=== PATIENT | male | born 2000 | race Asian ===

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

== ENCOUNTER → 2018-11-07 06:51 | Day surgery (SDC) | payer OTHER, MEDICAID ==
[~2018-11-07 06:51] MED LIST changes: +Atracurium* 10 MG/ML 10 ML VIAL ONE; -Buffered Lidocaine 0.9% SYRIN* 5 ML/SYR SYRINGE INTRADERM ONE; -Famotidine IV* 10 MG/ML 2 ML (20 mg) IV ONE; +KETAMINE HCL* 50 MG/ML 10 ML VIAL ONE; +Lactated Ringers 1000 ML Bag* 1,000 ML IV SCH; +Midazolam concentrated* 5 MG/ML 1 ml VIAL ONE; +Midazolam* 1 MG/ML 2 ML VIAL (2 MG) ONE; -PROCHLORPERAZINE INJ 5 MG/ML 2 ML VIAL IV PRN; +Propofol* 10 MG/ML 20 ML BTL ONE; +fentaNYL* 50 MCG/ML 2 ML VIAL (100 MCG VIAL) ONE
[2018-11-07 10:18] LABS: ABS Eosinophils 0.1 10^3/ul (0-0.6); ABS Lymphocytes 2.2 10^3/ul (1.0-4.8); ABS Monocytes 0.5 10^3/ul (0-0.8); ABS Neutrophils 5.7 10^3/ul (1.5-7.7); Eosinophil % 1.3 %; Hematocrit 40 % (42-52); Hemoglobin 13.8 g/dL (14.0-18.0); Lymphocyte % 25.3 %; Mean Corpuscular HGB Conc 34 g/dL (31-36); Mean Corpuscular Hemoglobin 30 pg (27-31); Mean Corpuscular Volume 86 fL (80-94); Mean Platelet Volume 8.9 fL (7.4-10.4); Nucleated Red Blood Cells % 0.1; Platelet Count 244 10^3/uL (150-450); Red Blood Count 4.64 10^6 /uL (4.18-5.48); Red Cell Distribution Width 13 % (10-15); White Blood Count 8.5 10^3/uL (3.5-10.8)
[2018-11-07 10:33] LABS: Albumin 4.8 g/dL (3.2-5.2); Albumin/Globulin Ratio 2.2 (1-3); Calcium 9.7 mg/dL (8.6-10.3); EGFR African American 175.8 (>60); EGFR Non-African American 145.3 (>60); Globulin 2.2 g/dL (2-4); HDL Cholesterol 35.1 mg/dL; Potassium 4.1 mmol/L (3.5-5.0); Total Bilirubin 0.2 mg/dL (0.2-1.0)
[2018-11-07 11:05] VITALS: BP 101/79
== END | disposition home or self-care (01) ==
LOC: OR 06:51
PROVIDERS: ATTEND Otolaryngology
DX: S09.93XA Unspecified injury of face, initial encounter (principal); S02.5XXA Fracture of tooth (traumatic), initial encounter for closed fracture; W22.8XXA Striking against or struck by other objects, initial encounter; Y92.9 Unspecified place or not applicable; J32.0 Chronic maxillary sinusitis; F84.0 Autistic disorder; F42.9 Obsessive-compulsive disorder, unspecified; G40.89 Other seizures; L65.9 Nonscarring hair loss, unspecified; J30.9 Allergic rhinitis, unspecified; F91.9 Conduct disorder, unspecified; Z79.899 Other long term (current) drug therapy
CPT/HCPCS: 36415; 70486; 80053; 80061; 83036; 85025; J2250; J2704; J3010

== ENCOUNTER 2019-02-27 16:28 | Emergency (ER) | payer OTHER, MEDICAID ==
--- OUTSIDE RECORDS SUMMARY | 2019-02-27 16:52 | XMS REPORT | Continuity of Care Document ---
:2000 External Reference #:[id number] Author Name Lori Gutierrez DO Address [address] [place] [id number] Care Team Providers Name Role Phone Lori Gutierrez - Family Medicine Care Team Information Risk Management Intern [phone] Problems Active Problems Provider Date Autistic disorder Lori Gutierrez DO Onset: 11/01/2018 Seizure Onset: Abnormal weight loss Lori Gutierrez DO Onset: 11/01/2018 Social History Type Date Description Comments Sex Unknown Allergies, Adverse Reactions, Alerts Active Allergies Reaction Severity Comments Date Trees 10/29/2018 Caseins 11/17/2018 Soy Proteins 10/29/2018 Dairy 11/17/2018 Biaxin 10/29/2018 Macrolides And Ketolides 10/29/2018 Medications Active Medications SIG Qnty Indications Ordering Date Provider Chlorhexidine [place] or swab [facility] 02/13/2019 Gluconate 10 ml daily Karnow, DO 0.12% Solution Acetaminophen 1 tab by mouth [facility] 02/13/2019 every 4 hours Karnow, DO 325mg/10.15ML as needed for Solution pain and fever Ibuprofen 200 2 tab by mouth [facility] 02/13/2019 200mg every 8 hours Karnow, DO Tablets as needed Betamethasone Apply once a Lori 02/13/2019 Dipropionate day on affected Karnow, DO 0.05% area of scalp Ointment as needed Artificial Tears one drop each 1units Lori 02/12/2019 eye as needed Karnow, DO 1-0.3% Solution for dry eyes Saline Nasal [place] 1 spray each 132ml JONO Fulton 11/05/2018 nare as needed 0.65% Solution Tums 2 tabs by mouth 90units Lori 10/29/2018 500mg Chewtabs every 4 hours Karnow, DO as needed for stomach upset Prevacid Solutab 30mg qd Lori 10/29/2018 30mg Karnow, DO Tablets Dispers Qnasl 2 puffsc each Lori 10/29/2018 80mcg/Act nostril every Karnow, DO Aerosol day Pazeo 1 drop both 2.500units Lori 10/29/2018 0.7% Solution eyes every day Karnow, DO as needed Xyzal 1 tab by mouth Lori 10/29/2018 5mg Tablets every morning Karnow, DO Hydroxyzine HCL 25 mg tid Lori 10/29/2018 25mg Karnow, DO Tablets Seroquel XR 1 tab by mouth Lori 10/29/2018 50mg three times a Karnow, DO Tablets ER 24HR day Xyzal Allergy 24HR take 1 tablet Unknown orally once a 5mg Tablets day as needed Culturelle 1 tab by mouth Unknown Capsules every day Zoloft 1 tab by mouth Unknown 25mg Tablets every day Triazolam 3 tabs by mouth Unknown 0.25mg 45 minutes Tablets before dental exam History Medications Culturelle ! tab PO qd Lori Garciaw, 10/29/2018 - Capsules DO 02/13/2019 Multi Complete qd Lori Enriquenow, 10/29/2018 - DO 02/11/2019 Capsules Peridex QHS Lori Garciaw, 10/29/2018 - 0.12% Solution DO 02/13/2019 Zoloft 1 tab by mouth 30tabs Lori Radhaw, 10/29/2018 - 50mg Tablets every day DO 02/13/2019 Immunizations Description No Information Available Vital Signs Date Vital Result Comment 01/23/2019 12:11pm BP Systolic 116 mmHg BP Diastolic 68 mmHg Heart Rate 68 /min Body Temperature 98.1 F 10/29/2018 3:12pm BP Systolic 120 mmHg BP Diastolic 64 mmHg Weight 125.00 lb Heart Rate 119 /min Body Temperature 99.5 F O2 % BldC Oximetry 99 % Weight Percentile 7th Results Test Acquired Date Facility Test Result H/L Range Note Basic Metabolic 02/19/2019 [facility] Sodium 140 mmol/L Normal 135-[address] [place] [address] [phone] Potassium 4.5 mmol/L Normal 3.5-5.0 Chloride 105 mmol/L Normal 101-111 Co2 Carbon Dioxide 30 mmol/L Normal 22-32 Anion Gap 5 mmol/L Normal 2-11 Glucose 94 mg/dL Normal 70-100 Blood Urea Nitrogen 13 mg/dL Normal 6-24 Creatinine 0.65 mg/dL Low 0.67-1.17 BUN/Creatinine Ratio 20.0 Normal 8-20 Calcium 9.6 mg/dL Normal 8.6-10.3 Egfr Non- 156.6 >60 Egfr 189.5 >60 1 Pthi 02/19/2019 [facility] Calcium (PTH 9.5 mg/dL Normal 8.6- 10.[address] Intact) [place] [address] [phone] PTH Intact 33.5 pg/mL Normal 12-88 Laboratory test 02/19/2019 [facility] Vitamin D 31.2 ng/mL Normal 20-[address] Total 25(Oh) [place] [address] [phone] TSH (Thyroid Stim Horm) 2.90 mcIU/mL Normal 0.34-5.60 Free T4 (Free Thyroxine) 0.78 ng/dL Normal 0.61-1.12 CBC Auto 12/24/2018 [facility] White Blood 6.4 10^3/uL Normal 3.5-10.[address] [place] [address] [phone] Red Blood Count 5.06 10^6/uL Normal 4.18-5.48 Hemoglobin 15.3 g/dL Normal 14.0-18.0 Hematocrit 45 % Normal 42-52 Mean Corpuscular Volume 89 fL Normal 80-94 Mean Corpuscular Hemoglobin 30 pg Normal 27-31 Mean Corpuscular HGB Conc 34 g/dL Normal 31-36 Red Cell Distribution Width 13 % Normal 10-15 Platelet Count 246 10^3/uL Normal 150-450 Mean Platelet Volume 8.8 fL Normal 7.4-10.4 Abs Neutrophils 4.2 10^3/uL Normal 1.5-7.7 Abs Lymphocytes 1.8 10^3/uL Normal 1.0-4.8 Abs Monocytes 0.3 10^3/uL Normal 0-0.8 Abs Eosinophils 0.1 10^3/uL Normal 0-0.6 Abs Basophils 0.0 10^3/uL Normal 0-0.2 Abs Nucleated RBC 0.0 10^3/uL Granulocyte % 64.7 % Lymphocyte % 28.6 % Monocyte % 5.1 % Eosinophil % 1.1 % Basophil % 0.5 % Nucleated Red Blood Cells % 0.1 Iron & Iron Binding 12/24/2018 [facility] Iron 74 g/dL Normal 50-212 Capacity [address] [place] [address] [phone] Unsaturated Iron Binding < 369 g/dL Total Iron Binding Capacity 384 g/dL Normal 250-450 Transferrin 274 mg/dL Normal 203-362 % Iron Saturation 19 % Normal 15-55 Comp Metabolic 12/24/2018 [facility] Sodium 144 mmol/L Normal 135-145 Panel [address] [place] [address] [phone] Potassium 4.4 mmol/L Normal 3.5-5.0 Chloride 104 mmol/L Normal 101-111 Co2 Carbon Dioxide 33 mmol/L High 22-32 Anion Gap 7 mmol/L Normal 2-11 Glucose 93 mg/dL Normal 70-100 Blood Urea Nitrogen 18 mg/dL Normal 6-24 Creatinine 0.69 mg/dL Normal 0.67-1.17 BUN/Creatinine Ratio 26.1 High 8-20 Calcium 10.8 mg/dL High 8.6-10.3 Total Protein 7.3 g/dL Normal 6.4-8.9 Albumin 5.1 g/dL Normal 3.2-5.2 Globulin 2.2 g/dL Normal 2-4 Albumin/Globulin Ratio 2.3 Normal 1-3 Total Bilirubin 0.30 mg/dL Normal 0.2-1.0 Alkaline Phosphatase 52 U/L Normal 34-104 Alt 13 U/L Normal 7-52 Ast 14 U/L Normal 13-39 Egfr Non- 146.2 >60 Egfr 176.9 >60 3 Laboratory test 12/24/2018 [facility] Magnesium 2.2 mg/dL Normal 1.9-2.7 finding [address] [place] [address] [phone] Vitamin B12 362 pg/mL Normal 180-914 4 Folic Acid (Folate) > 20.00 ng/mL >3.99 Zinc Serum 0.86 g/mL 0.66-1.10 5 Vitamin D Total 25(Oh) 25.6 ng/mL Normal 20-50 6 Ferritin 23.3 ng/mL Low 24-336 CBC Auto 11/07/2018 [facility] White Blood 8.5 10^3/uL Normal 3.5-10.[address] [place] [address] [phone] Red Blood Count 4.64 10^6/uL Normal 4.18-5.48 Hemoglobin 13.8 g/dL Low 14.0-18.0 Hematocrit 40 % Low 42-52 Mean Corpuscular Volume 86 fL Normal 80-94 Mean Corpuscular Hemoglobin 30 pg Normal 27-31 Mean Corpuscular HGB Conc 34 g/dL Normal 31-36 Red Cell Distribution Width 13 % Normal 10-15 Platelet Count 244 10^3/uL Normal 150-450 Mean Platelet Volume 8.9 fL Normal 7.4-10.4 Abs Neutrophils 5.7 10^3/uL Normal 1.5-7.7 Abs Lymphocytes 2.2 10^3/uL Normal 1.0-4.8 Abs Monocytes 0.5 10^3/uL Normal 0-0.8 Abs Eosinophils 0.1 10^3/uL Normal 0-0.6 Abs Basophils 0.0 10^3/uL Normal 0-0.2 Abs Nucleated RBC 0.0 10^3/uL Granulocyte % 66.8 % Lymphocyte % 25.3 % Monocyte % 6.3 % Eosinophil % 1.3 % Basophil % 0.3 % Nucleated Red Blood Cells % 0.1 Comp Metabolic 11/07/2018 [facility] Sodium 140 mmol/L Normal 135-[address] [place] [address] [phone] Potassium 4.1 mmol/L Normal 3.5-5.0 Chloride 107 mmol/L Normal 101-111 Co2 Carbon Dioxide 27 mmol/L Normal 22-32 Anion Gap 6 mmol/L Normal 2-11 Glucose 92 mg/dL Normal 70-100 Blood Urea Nitrogen 21 mg/dL Normal 6-24 Creatinine 0.70 mg/dL Normal 0.67-1.17 BUN/Creatinine Ratio 30.0 High 8-20 Calcium 9.7 mg/dL Normal 8.6-10.3 Total Protein 7.0 g/dL Normal 6.4-8.9 Albumin 4.8 g/dL Normal 3.2-5.2 Globulin 2.2 g/dL Normal 2-4 Albumin/Globulin Ratio 2.2 Normal 1-3 Total Bilirubin 0.20 mg/dL Normal 0.2-1.0 Alkaline Phosphatase 55 U/L Normal 34-104 Alt 11 U/L Normal 7-52 Ast 15 U/L Normal 13-39 Egfr Non- 145.3 >60 Egfr 175.8 >60 7 Laboratory test 11/07/2018 [facility] Hemoglobin A1c 4.9 % Normal 4.0-5.6 [address] (Glyco HGB) [place] [address] [phone] Lipid Profile 11/07/2018 [facility] Triglycerides 61 9 (Trig/Chol/HDL) [address] mg/[place] [address] [phone] Cholesterol 119 mg/dL 10 HDL Cholesterol 35.1 mg/dL 11 LDL Cholesterol 72 mg/dL 12 1 Because ethnic data is not always readily available, this report includes an eGFR for both -Americans and non- Americans. The National Kidney Disease Education Program (NKDEP) does not endorse the use of the MDRD equation for patients that are not between the ages of 18 and 70, are , have extremes of body size, muscle mass, or nutritional status, or are non- or non-. According to the National Kidney Foundation, irrespective of diagnosis, the stage of the disease is based on the level of kidney function: Stage Description GFR(mL/min/1.73 m(2)) 1 Kidney damage with normal or decreased GFR 90 2 Kidney damage with mild decrease in GFR 60-89 3 Moderate decrease in GFR 30-59 4 Severe decrease in GFR 15-29 5 Kidney failure <15 (or dialysis) 2 Total 25-Hydroxyvitamin D2 and D3 (25-OH-VitD) <10 ng/mL (severe deficiency) 10-19 ng/mL (mild to moderate deficiency) 20-50 ng/mL (optimum levels) 51-80 ng/mL (increased risk of hypercalciuria) >80 ng/mL (toxicity possible) 3 Because ethnic data is not always readily available, this report includes an eGFR for both -Americans and non- Americans. The National Kidney Disease Education Program (NKDEP) does not endorse the use of the MDRD equation for patients that are not between the ages of 18 and 70, are , have extremes of body size, muscle mass, or nutritional status, or are non- or non-. According to the National Kidney Foundation, irrespective of diagnosis, the stage of the disease is based on the level of kidney function: Stage Description GFR(mL/min/1.73 m(2)) 1 Kidney damage with normal or decreased GFR 90 2 Kidney damage with mild decrease in GFR 60-89 3 Moderate decrease in GFR 30-59 4 Severe decrease in GFR 15-29 5 Kidney failure <15 (or dialysis) 4 Normal Range 180 to 914 Indeterminate Range 145 to 180 Deficient Range <145 5 ADDITIONAL INFORMATION This test was developed and its performance characteristics determined by [facility] in a manner consistent with CLIA requirements. This test has not been cleared or approved by the U.S. Food and Drug Administration. Test Performed by: [facility] [place] [address] Criminalist: Lenin Dalal M.D. Ph.D.; CLIA# [id number] 6 Total 25-Hydroxyvitamin D2 and D3 (25-OH-VitD) <10 ng/mL (severe deficiency) 10-19 ng/mL (mild to moderate deficiency) 20-50 ng/mL (optimum levels) 51-80 ng/mL (increased risk of hypercalciuria) >80 ng/mL (toxicity possible) 7 Because ethnic data is not always readily available, this report includes an eGFR for both -Americans and non- Americans. The National Kidney Disease Education Program (NKDEP) does not endorse the use of the MDRD equation for patients that are not between the ages of 18 and 70, are , have extremes of body size, muscle mass, or nutritional status, or are non- or non-. According to the National Kidney Foundation, irrespective of diagnosis, the stage of the disease is based on the level of kidney function: Stage Description GFR(mL/min/1.73 m(2)) 1 Kidney damage with normal or decreased GFR 90 2 Kidney damage with mild decrease in GFR 60-89 3 Moderate decrease in GFR 30-59 4 Severe decrease in GFR 15-29 5 Kidney failure <15 (or dialysis) 8 Therapeutic target for the treatment of diabetes mellitus patients is <7% HBA1C, and in selective patients <6.0%. Please refer to [place] [employer] diabetic care guidelines for further information. 9 Desirable: <150 Borderline High: 150-199 High: 200-499 Very High: >500 10 Desirable: <200 Borderline High: 200-239 High: >239 11 Low: <40 Desirable: 40-60 High: >60 12 Desirable: <100 Near Optimal: 100-129 Borderline High: 130-159 High: 160-189 Very High: >189 Procedures Description No Information Available Medical Devices Description No Information Available Encounters Type Date Location Provider Dx Diagnosis Office Visit 01/23/2019 [facility] Fort[facility] Raymond MD B34.9 Viral infection, 12:00p unspecified Office Visit 10/29/2018 [facility] Lori Karthiago, Z01.818 Encounter for other 3:00p DO preprocedural examination S09.93xD Unspecified injury of face, subsequent encounter F84.0 Autistic disorder R63.4 Abnormal weight loss Assessments Date Code Description Provider 01/23/2019 B34.9 Viral infection, unspecified Ashley Raymond MD 10/29/2018 Z01.818 Encounter for other preprocedural Lori Gutierrez, DO examination 10/29/2018 S09.93xD Unspecified injury of face, subsequent Loridat Gutierrez , encounter 10/29/2018 F84.0 Autistic disorder Loridat Gutierrez, DO 10/29/2018 R63.4 Abnormal weight loss Loridat Gutierrez, DO Plan of Treatment No Information Available Functional Status Description No Information Available Mental Status Description No Information Available Referrals Description No Information Available
--- OUTSIDE RECORDS SUMMARY | 2019-02-27 16:52 | XMS REPORT | Continuity of Care Document ---
:1998 External Reference #:[id number] Author Name MICHELL Hoover (transmitted by agent of provider Gustavo Damon) Address [address] [place] [address] Care Team Providers Name Role Phone Haroldo Chaparro MD - Pediatrics Care Team Information Galvanizer Problems Active Problems Provider Date Allergic rhinitis due to pollen Gustavo Damon MD Onset: 07/12/2015 Allergic rhinitis Gustavo Damon MD Onset: 07/12/2015 Acute atopic conjunctivitis Gustavo Damon MD Onset: 07/12/2015 Chronic allergic conjunctivitis Juana Clark RPA-C Onset: 2018 Social History Type Date Description Comments Sex Unknown Tobacco Use Start: Unknown Patient has never smoked Smoking Status Reviewed: 01/14/19 Patient has never smoked Allergies, Adverse Reactions, Alerts Active Allergies Reaction Severity Comments Date Clarithromycin possible seizure 09/14/2016 Macrolides And Ketolides 03/19/2018 Inactive Allergies NKDA 07/12/2015 Medications Active Medications SIG Qnty Indications Ordering Provider Date Xyzal Allergy 24HR Take One Tablet 30tabs J30.1 Jaime Nazario, 02/20/2018 By Mouth Every RPA-C 5mg Tablets Evening (Allergies) Hydroxyzine HCL take 1 tablet 90tabs Gustavo AKris 05/13/2017 by mouth 2 MD Nelson 25mg Tablets times daily ( 20 cells day card) (allergies) Pazeo one drop each 2.5units J30.1 Christopher AKris 09/14/2016 0.7% Solution eye as needed MD Nelson every day as needed Qnasl 2 puffs each 8.7units J30.1 Christopher AKris 07/12/2015 80mcg/Act nostril every MD Nelson Aerosol day Seroquel 2 tablets Q Am Unknown 50mg and Q PM Sertraline HCL 1 by mouth Unknown 25mg every day Tablets Prevacid take 1 capsule Unknown 30mg (30 mg) by oral Capsules DR route daily before a meal Immunizations Description No Information Available Vital Signs Date Vital Result Comment 03/19/2018 10:13am Height 66.5 inches 5'6.50" Weight 135.00 lb BMI (Body Mass Index) 21.5 kg/m2 Heart Rate 111 /min Respiratory Rate 16 /min O2 % BldC Oximetry 97 % 03/18/2017 9:38am Height 66.5 inches 5'6.50" Weight 120.00 lb per caregiver BMI (Body Mass Index) 19.1 kg/m2 Results Description No Information Available Procedures Description No Information Available Medical Devices Description No Information Available Encounters Type Date Location Provider Dx Diagnosis Office Visit 01/14/2019 2:00p [place] MICHELL Hoover J30.1 Allergic rhinitis due to pollen H10.45 Other chronic allergic conjunctivitis J30.89 Other allergic rhinitis Assessments Date Code Description Provider 01/14/2019 J30.1 Allergic rhinitis due to pollen MICHELL Hoover 01/14/2019 H10.45 Other chronic allergic conjunctivitis MICHELL Hoover 01/14/2019 J30.89 Other allergic rhinitis MICHELL Hoover Plan of Treatment Future Appointment(s):01/20/2020 11:00 am - MICHELL Hoover at [facility]/14/2019 - MICHELL HooverJ30.1 Allergic rhinitis due to pollenComments:Patient to stop Qnasl and Xyzal at this time. Patient will begin Qnasl and Xyzal starting daily on May 19 and ending on December 19. Patient will use Pazeo, as needed, for breakthrough eye symptoms. Patient will continue to use hydroxyzine, 25 mg, twice a day (decreased dose), for breakthrough nasalsymptoms as well as for additional anxiety treatment.Follow up:one yearH10.45 Other chronic allergic zyrkvsnweqmlzdY72.89 Other allergic rhinitis Functional Status Description No Information Available Mental Status Description No Information Available Referrals Description No Information Available
--- OUTSIDE RECORDS SUMMARY | 2019-02-27 16:52 | XMS REPORT | Continuity of Care Document ---
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 Problems Active Problems Provider Date Autistic disorder [...] Medications SIG Qnty Indications Ordering Provider Date Saline Nasal [place] 1 spray each 132ml JONO Fulton 11/05/2018 nare as needed 0.65% Solution Seroquel XR 3 tabs Am, 1 tab Lori Radhaw, 10/29/2018 50mg 3pm, 3 tabs hs DO Tablets ER 24HR Hydroxyzine HCL 25 mg tid Lori Garciaw, 10/29/2018 25mg DO Tablets Xyzal 5mg QHS Lori Enriquenow, 10/29/2018 5mg Tablets DO Pazeo 1GTT OU qd Lori Garciaw, 10/29/2018 0.7% Solution DO Qnasl 2 puffs each Lori Rahdaw, 10/29/2018 80mcg/Act nare QHS DO Aerosol Prevacid Solutab 30mg qd Lori Garciaw, 10/29/2018 30mg DO Tablets Dispers Culturelle ! tab PO qd Lori Garciaw, 10/29/2018 Capsules DO Multi Complete qd Loridat Gutierrez, 10/29/2018 DO Capsules Peridex QHS Lori Gutierrez, 10/29/2018 0.12% DO Solution Zoloft qd Lori Gutierrez, 10/29/2018 50mg Tablets DO Tums 2 tabs by mouth 90units Lori Gutierrez, 10/29/2018 500mg Chewtabs every 4 hours as DO needed for stomach upset Xyzal Allergy 24HR take 1 tablet Unknown orally once a 5mg Tablets day as needed Immunizations Description No Information Available Vital Signs [...] Date Facility Test Result H/L Range Note CBC Auto 12/24/2018 [facility] White Blood 6.4 10^3/uL Normal 3.5-10.[address] [place], [place] [address] [phone] Red Blood Count 5.06 10^6/uL Normal 4.18-5.48 [...] % 0.1 Iron & Iron Binding 12/24/2018 [facility] Iron 74 g/dL Normal 50-212 [address]acity [address] [place] [address] [phone] Unsaturated Iron Binding < 369 g/dL Total Iron Binding Capacity 384 g/dL Normal 250-450 Transferrin 274 mg/dL Normal 203-362 % Iron Saturation 19 % Normal 15-55 Comp Metabolic 12/24/2018 [facility] Sodium 144 mmol/L Normal 135-[address] [place] [address] [phone] Potassium 4.4 mmol/L Normal 3.5-5.0 Chloride 104 [...] Egfr Non- 146.2 >60 Egfr 176.9 >60 1 Laboratory test 12/24/2018 [facility] Magnesium 2.2 mg/dL Normal 1.9-2.[address] [place] [address] [phone] Vitamin B12 362 pg/mL Normal 180-914 2 Folic Acid (Folate) > 20.00 ng/mL >3.99 Zinc Serum 0.86 g/mL 0.66-1.10 3 Vitamin D Total 25(Oh) 25.6 ng/mL Normal 20-50 4 Ferritin 23.3 ng/mL Low 24-336 CBC Auto 11/07/2018 [facility] White Blood 8.5 10^3/uL Normal 3.5-10.[address] [place] [address] [phone] Red Blood Count 4.64 10^6/uL Normal 4.18-5.48 [...] Blood Cells % 0.1 Comp Metabolic 11/07/2018 [facility] Sodium 140 mmol/L Normal 135-[address] [place] [address] [phone] Potassium 4.1 mmol/L Normal 3.5-5.0 Chloride 107 [...] Egfr Non- 145.3 >60 Egfr 175.8 >60 5 Laboratory test 11/07/2018 [facility] Hemoglobin A1c 4.9 % Normal 4.0-5.6 [address] (Glyco HGB) [place] [address] [phone] Lipid Profile 11/07/2018 [facility] Triglycerides 61 7 (Trig/Chol/HDL) [address] mg/[place] [address] [phone] Cholesterol 119 mg/dL 8 HDL Cholesterol 35.1 mg/dL 9 LDL Cholesterol 72 mg/dL 10 1 Because ethnic data is not always [...] 5 Kidney failure <15 (or dialysis) 2 Normal Range 180 to 914 Indeterminate Range 145 to 180 Deficient Range <145 3 ADDITIONAL INFORMATION This test was developed and its performance characteristics determined by [facility] in a manner consistent with CLIA requirements. This test has not been cleared or approved by the U.S. Food and Drug Administration. Test Performed by: [facility] [address] [place] [address] Cardiac Technician: Lenin Dalal M.D. Ph.D.; CLIA# [id number] 4 Total 25-Hydroxyvitamin D2 and D3 (25-OH-VitD) <10 ng/mL (severe deficiency) 10-19 ng/mL (mild to moderate deficiency) 20-50 ng/mL (optimum levels) 51-80 ng/mL (increased risk of hypercalciuria) >80 ng/mL (toxicity possible) 5 Because ethnic data is not always readily [...] 15-29 5 Kidney failure <15 (or dialysis) 6 Therapeutic target for the treatment of diabetes mellitus patients is <7% HBA1C, and in selective patients <6.0%. Please refer to [place] [employer] diabetic care guidelines for further information. 7 Desirable: <150 Borderline High: 150-199 High: 200-499 Very High: >500 8 Desirable: <200 Borderline High: 200-239 High: >239 9 Low: <40 Desirable: 40-60 High: >60 10 Desirable: <100 Near Optimal: 100-129 Borderline High: 130-159 High: 160-189 Very High: >189 Procedures Description No Information Available Medical Devices Description No Information Available Encounters Type Date Location Provider Dx Diagnosis Office Visit 01/23/2019 [facility] Fortino Raymond MD B34.9 Viral infection, 12:00p unspecified Office Visit 10/29/2018 [facility] Fortino Gutierrez, Z01.818 Encounter for other 3:00p DO preprocedural examination S09.93xD Unspecified injury of face, subsequent encounter F84.0 Autistic disorder R63.4 Abnormal weight loss Assessments Date Code Description Provider 01/23/2019 B34.9 Viral infection, unspecified Ashley Raymond MD 10/29/2018 Z01.818 Encounter for other preprocedural Lori Gutierrez, DO examination 10/29/2018 S09.93xD Unspecified injury of face, subsequent Lori Gutierrez DO encounter 10/29/2018 F84.0 Autistic disorder Lori Gutierrez, DO 10/29/2018 R63.4 Abnormal weight loss Lori Gutierrez DO Plan of Treatment No Information Available Functional Status Description No Information Available Mental Status Description No Information Available Referrals Description No Information Available
[2019-02-27 17:02] VITALS: BP 125/83
--- NOTE | 2019-02-27 17:14 | UC ---
Eye Complaint HPI - HPI Summary HPI Summary: 18-year-old male comes in with chief complaint of bilateral eye drainage and redness. Started 2 days ago. Patient has special needs and he is nonverbal. It's unclear whether or not he's also had rhinorrhea. The caregiver is not aware of any other symptoms. - History of Current Complaint Chief Complaint: UCEye Stated Complaint: EYE IRRITATION Time Seen by Provider: 02/27/19 17:02 Pain Intensity: 0 - Allergies/Home Medications Allergies/Adverse Reactions: Allergies Allergy/AdvReac Type Severity Reaction Status Date / Time clarithromycin [From Biaxin] Allergy Severe Unknown Verified 02/27/19 17:02 Reaction Details lactose Allergy Severe GI Upset Verified 02/27/19 17:02 casein Allergy Mild See Comment Verified 02/27/19 17:02 soy Allergy Unknown Unknown Verified 02/27/19 17:02 Reaction Details PMH/Surg Hx/FS Hx/Imm Hx Previously Healthy: Yes - non verbal,special needs - Surgical History Surgical History: Yes Surgery Procedure, Year, and Place: dental surgeries only. wisdom teeth and tooth #7,#8 removed under anesthesia-[place]. sedated for an MRI 2013. UGI w/ anesthesia 2018 - Family History Known Family History: Positive: Non-Contributory - Social History Alcohol Use: None Substance Use Type: None Smoking Status (MU): Never Smoked Tobacco Have You Smoked in the Last Year: No - Immunization History Most Recent Influenza Vaccination: unsure Most Recent Pneumonia Vaccination: never Review of Systems All Other Systems Reviewed And Are Negative: Yes Constitutional: Positive: Other - see hpi Skin: Positive: Other - There is some redness around the eyes with the patient' s been rubbing his eyes Eyes: Positive: Drainage - Bilateral, Eye Redness - Bilateral ENT: Positive: Nasal Discharge Respiratory: Positive: Negative Cardiovascular: Positive: Negative Motor: Positive: Negative Neurovascular: Positive: Negative Musculoskeletal: Positive: Negative Neurological: Positive: Other - Nonverbal Psychological: Positive: Other - Nonverbal Is Patient Immunocompromised?: No Physical Exam Triage Information Reviewed: Yes Appearance: Well-Appearing, No Pain Distress, Well-Nourished, Other: - Patient is nonverbal and has special needs he is rubbing his eyes are almost continual basis. Not ill-appearing otherwise. Vital Signs: Initial Vital Signs Temp 98.4 F 02/27/19 16:55 Pulse 96 02/27/19 16:55 Resp 18 02/27/19 16:55 BP 125/83 02/27/19 16:55 Pulse Ox 100 02/27/19 16:55 Vital Signs Reviewed: Yes Eyes: Positive: Conjunctiva Inflamed - Bilateral, Discharge - Bilateral ENT: Positive: Nasal drainage, TMs normal Neck: Positive: Supple Respiratory: Positive: No respiratory distress Musculoskeletal: Positive: Strength Intact, ROM Intact Neurological: Positive: Alert, Muscle Tone Normal Psychological: Positive: Age Appropriate Behavior Skin Exam: Normal Eye Complaint Course/Dx - Course Course Of Treatment: Going to treat the conjunctivitis with tobramycin. Because the patient is nonverbal and the caregiver is not aware of whether or not the patient has any other symptoms besides the eyes of the duration of any other symptoms I will treat with amoxicillin for potential sinus infection as a coinfection with the conjunctivitis. Patient should follow-up his primary care doctor get reevaluated sooner if worse or any questions or concerns. - Differential Dx/Diagnosis Provider Diagnosis: Conjunctivitis, Upper respiratory infection Discharge ED - Sign-Out/Discharge Documenting (check all that apply): Patient Departure All imaging exams completed and their final reports reviewed: No Studies - Discharge Plan Condition: Stable Disposition: HOME Prescriptions: Amoxicillin PO (*) [Amoxicillin 875 MG (*)] 875 mg PO BID #20 tab Tobramycin 0.3% OPHTH.JUSTO* 1 drop BOTH EYES Q4H #1 btl Patient Education Materials: Upper Respiratory Infection (ED), Conjunctivitis ( ED) Referrals: Lori Gutierrez DO [Primary Care Provider] - Additional Instructions: FOLLOW UP WITH YOUR DOCTOR IF NOT COMPLETELY IMPROVED. GET REEVALUATED SOONER IF NOT IMPROVED OR WORSE OR ANY QUESTIONS OR CONCERNS. - Billing Disposition and Condition Condition: STABLE Disposition: Home
== END 2019-02-27 17:21 | disposition home or self-care (01) ==
LOC: UCEAST 16:28
DX: H10.9 Unspecified conjunctivitis (principal); J06.9 Acute upper respiratory infection, unspecified; Z88.1 Allergy status to other antibiotic agents; Z91.011 Allergy to milk products; Z91.018 Allergy to other foods
CPT/HCPCS: 99212; G0463

== ENCOUNTER 2019-08-05 12:53 | Inpatient (IN) ==
[2019-08-05 14:09] LABS: ABS Lymphocytes 1.1 10^3/ul (1.0-4.8); ABS Monocytes 0.2 10^3/ul (0-0.8); Eosinophil % 0.2 %; Hematocrit 41 % (42-52); Lymphocyte % 23.1 %; Mean Corpuscular HGB Conc 34 g/dL (31-36); Mean Corpuscular Hemoglobin 31 pg (27-31); Mean Corpuscular Volume 90 fL (80-94); Mean Platelet Volume 8.6 fL (7.4-10.4); Platelet Count 217 10^3/uL (150-450); Red Blood Count 4.57 10^6 /uL (4.18-5.48); Red Cell Distribution Width 13 % (10-15); White Blood Count 4.8 10^3/uL (3.5-10.8)
[2019-08-05 14:25] LABS: INR 1.22 (0.82-1.09)
[2019-08-05 14:30] LABS: ALT 11 U/L (7-52); AST 17 U/L (13-39); Albumin 5.1 g/dL (3.2-5.2); Albumin/Globulin Ratio 2.1 (1-3); Alkaline Phosphatase 46 U/L (34-104); Anion Gap 7 mmol/L (2-11); BUN/Creatinine Ratio 17.1 (8-20); Blood Urea Nitrogen 14 mg/dL (6-24); CO2 Carbon Dioxide 28 mmol/L (22-32); Calcium 10.1 mg/dL (8.6-10.3); Chloride 108 mmol/L (101-111); EGFR African American 144.9 (>60); EGFR Non-African American 119.8 (>60); Globulin 2.4 g/dL (2-4); Glucose 90 mg/dL (70-100); Potassium 4.9 mmol/L (3.5-5.0); Sodium 143 mmol/L (135-145); Total Protein 7.5 g/dL (6.4-8.9)
[2019-08-05] MEDS ORDERED: Pantoprazole VIAL 40 MG VIAL IV ONE (15:44)
[2019-08-05] MEDS ORDERED: NS 0.9% 1000 ml BAG 1,000 ML IV ONE (15:44)
[2019-08-05] MEDS ORDERED: Ondansetron 4 mg VIAL 2 MG/ML 2 ml VIAL IV ONE (15:44)
[2019-08-05] MEDS ORDERED: NS 0.9% 1000 ml BAG 1,000 ML IV SCH (16:00)
[2019-08-05] MEDS: Pantoprazole VIAL 40 MG VIAL IV SCH (20:41)
[2019-08-05] MEDS: Chlorhexidine MOUTHWASH 0.12% 15 ML UDC SWISH SPIT SCH (20:41)
[2019-08-06 08:17] LABS: ABS Eosinophils 0.1 10^3/ul (0-0.6); ABS Lymphocytes 1.8 10^3/ul (1.0-4.8); ABS Monocytes 0.3 10^3/ul (0-0.8); Eosinophil % 1.1 %; Hematocrit 43 % (42-52); Hemoglobin 14.5 g/dL (14.0-18.0); Lymphocyte % 33.6 %; Mean Corpuscular HGB Conc 34 g/dL (31-36); Mean Corpuscular Hemoglobin 31 pg (27-31); Mean Corpuscular Volume 92 fL (80-94); Mean Platelet Volume 9.4 fL (7.4-10.4); Nucleated Red Blood Cells % 0.2; Platelet Count 215 10^3/uL (150-450); Red Blood Count 4.62 10^6 /uL (4.18-5.48); Red Cell Distribution Width 14 % (10-15); White Blood Count 5.4 10^3/uL (3.5-10.8)
[2019-08-06 08:25] LABS: Albumin 4.8 g/dL (3.2-5.2); Calcium 10.2 mg/dL (8.6-10.3); Total Bilirubin 0.6 mg/dL (0.2-1.0)
[2019-08-06 08:31] LABS: Albumin/Globulin Ratio 1.9 (1-3); BUN/Creatinine Ratio 18.3 (8-20); EGFR African American 144.9 (>60); EGFR Non-African American 119.8 (>60); Globulin 2.5 g/dL (2-4); Total Protein 7.3 g/dL (6.4-8.9)
[2019-08-06] MEDS: Pantoprazole VIAL 40 MG VIAL IV SCH (08:35)
[2019-08-06] MEDS: Ondansetron 4 mg VIAL 2 MG/ML 2 ml VIAL IV PRN ×2 (08:35→18:42)
[2019-08-06] MEDS: Fluticasone NASAL SPRAY 50MCG 16 gm SPRAY BTL BOTH NARES SCH (08:49)
[2019-08-06] MEDS: Vitamin THERAPEUTIC TAB PO SCH (08:49)
[2019-08-06 09:06] LABS: Potassium 5.1 mmol/L (3.5-5.0)
[2019-08-06] MEDS ORDERED: Ondansetron 4 mg VIAL 2 MG/ML 2 ml VIAL IV PRN (16:27)
[2019-08-06] MEDS ORDERED: Naloxone 0.4 mg VIAL 0.4 mg/ml 1 ml VIAL IV PRN (16:27)
[2019-08-06] MEDS ORDERED: fentaNYL 100 mcg/2 ml 50 MCG/ML VIAL IV PRN (16:27)
[2019-08-06] MEDS ORDERED: Lidocaine 2% PF 5 ML VIAL ONE (16:29)
[2019-08-06] MEDS ORDERED: fentaNYL 100 mcg/2 ml 50 MCG/ML VIAL ONE (16:33)
[2019-08-06] MEDS ORDERED: Midazolam 2 mg/2 ml VIAL 1 mg/ml 2 ml VIAL (2 mg) ONE (16:52)
[2019-08-06] MEDS ORDERED: CMCS: Pantoprazole Packet (NF) 40 MG GRANPKT.DR PO SCH (18:30)
[2019-08-06] MEDS ORDERED: Sucralfate 1 gm SUSP 1 GM/10 ML UDC PO SCH (21:00)
[2019-08-06] MEDS: CMCS: Pantoprazole Packet (NF) 40 MG GRANPKT.DR PO SCH (22:22)
[2019-08-06] MEDS: Chlorhexidine MOUTHWASH 0.12% 15 ML UDC SWISH SPIT SCH (22:29)
[2019-08-07] MEDS: Ondansetron 4 mg VIAL 2 MG/ML 2 ml VIAL IV PRN ×2 (07:49→15:58)
[2019-08-07 09:14] LABS: CO2 Carbon Dioxide 17 mmol/L (22-32); Calcium 9.8 mg/dL (8.6-10.3); Chloride 104 mmol/L (101-111); Sodium 138 mmol/L (135-145)
[2019-08-07 09:19] LABS: Anion Gap 17 mmol/L (2-11)
[2019-08-07 09:20] LABS: BUN/Creatinine Ratio 21.7 (8-20); Blood Urea Nitrogen 18 mg/dL (6-24); EGFR African American 142.9 (>60); EGFR Non-African American 118.1 (>60); Glucose 63 mg/dL (70-100)
[2019-08-07] MEDS: Fluticasone NASAL SPRAY 50MCG 16 gm SPRAY BTL BOTH NARES SCH (09:27)
[2019-08-07] MEDS: Vitamin THERAPEUTIC TAB PO SCH (09:30)
[2019-08-07] MEDS: CMCS: Pantoprazole Packet (NF) 40 MG GRANPKT.DR PO SCH (09:31)
[2019-08-07 10:38] LABS: ABS Lymphocytes 1.5 10^3/ul (1.0-4.8); ABS Monocytes 0.3 10^3/ul (0-0.8); Eosinophil % 0.2 %; Hematocrit 38 % (42-52); Lymphocyte % 29.8 %; Mean Corpuscular HGB Conc 34 g/dL (31-36); Mean Corpuscular Hemoglobin 31 pg (27-31); Mean Corpuscular Volume 90 fL (80-94); Mean Platelet Volume 8.7 fL (7.4-10.4); Nucleated Red Blood Cells % 0.1; Platelet Count 194 10^3/uL (150-450); Red Blood Count 4.21 10^6 /uL (4.18-5.48); Red Cell Distribution Width 13 % (10-15)
[2019-08-07] MEDS: Chlorhexidine MOUTHWASH 0.12% 15 ML UDC SWISH SPIT SCH (21:28)
[2019-08-07] MEDS: Pantoprazole VIAL 40 MG VIAL IV SCH (21:33)
[2019-08-08] MEDS: Vitamin THERAPEUTIC TAB PO SCH (10:38)
[2019-08-08] MEDS: Pantoprazole VIAL 40 MG VIAL IV SCH ×2 (11:10→21:28)
[2019-08-08] MEDS: Fluticasone NASAL SPRAY 50MCG 16 gm SPRAY BTL BOTH NARES SCH (11:13)
[2019-08-08] MEDS: Chlorhexidine MOUTHWASH 0.12% 15 ML UDC SWISH SPIT SCH (21:27)
[2019-08-08] MEDS: Ondansetron 4 mg VIAL 2 MG/ML 2 ml VIAL IV PRN (21:45)
[2019-08-09] MEDS: Vitamin THERAPEUTIC TAB PO SCH (07:49)
[2019-08-09] MEDS: Pantoprazole VIAL 40 MG VIAL IV SCH ×2 (07:49→20:55)
[2019-08-09] MEDS: Fluticasone NASAL SPRAY 50MCG 16 gm SPRAY BTL BOTH NARES SCH (07:50)
[2019-08-09] MEDS: Chlorhexidine MOUTHWASH 0.12% 15 ML UDC SWISH SPIT SCH (20:54)
[2019-08-09] MEDS: Ondansetron 4 mg VIAL 2 MG/ML 2 ml VIAL IV PRN (20:55)
[2019-08-10] MEDS: Pantoprazole VIAL 40 MG VIAL IV SCH (07:52)
[2019-08-10] MEDS: Fluticasone NASAL SPRAY 50MCG 16 gm SPRAY BTL BOTH NARES SCH (07:52)
[2019-08-10] MEDS: Vitamin THERAPEUTIC TAB PO SCH (07:52)
[2019-08-10] MEDS ORDERED: Scopolamine PATCH Remove NOTE PATCH OFF SCH (09:00)
[2019-08-10] MEDS: Ondansetron 4 mg VIAL 2 MG/ML 2 ml VIAL IV PRN (09:55)
[2019-08-10 11:47] VITALS: BP 108/67
== END 2019-08-10 13:50 | disposition home or self-care (01) | DRG 381 ==
LOC: MED 12:53 → ED 12:53 → MED 19:26
PROVIDERS: ADMIT Internal Medicine; ATTEND Internal Medicine